=== PATIENT | female | born 1965 | race Caucasian/White ===

== ENCOUNTER 2018-07-27 01:22 | Emergency (ER) | payer SELFPAY ==
[~2018-07-27] VITALS: Ht 165.1 cm; Wt 65.8 kg
[~2018-07-27 01:22] MED LIST: AMOX500T PO
--- NOTE | 2018-07-27 01:47 | EKG ---
[facility] [address] [place] [address] Test Date: 2018-07-27 Test Time: 01:40:21 Pat Name: LUCIA GIANG Department: Room: Gender: F [employer] Support Associate: : 1965 Requested By: TALIB WALKER Order Number: [id number] Reading MD: Faraz Dempsey MD Measurements Intervals [place] Rate: 85 P: 40 RI: 144 QRS: 30 QRSD: 92 T: 54 QT: 374 QTc: 445 Interpretive Statements SINUS RHYTHM Electronically Signed On 07-31-2018 11:03:01 CTC OPERATOR by Faraz Dempsey MD
--- NOTE | 2018-07-27 01:47 | PHYS DOC ---
Past Medical History Past Medical History: No Pertinent History Past Surgical History: No Surgical History Alcohol Use: Rarely Drug Use: Marijuana, Methamphetamine Adult General HPI HPI Patient is a 53 year old FEMALE who presents with left upper quadrant abdominal pain as well as left-sided chest pain. This started sometime yesterday. No worse with exertion. No position of comfort. No urinary symptoms. Patient arrived by EMS, EMS reports that she had a fever for them. Patient reports that she is coughing, has nausea and vomiting, and diarrhea. No blood in the stool or emesis. No sick family members. Patient has not had the flu vaccine this year. Patient reports taking Tylenol 3 without any symptom relief, as well as drinking alcohol without any symptom relief. Patient reports smoking marijuana earlier today prior to symptom onset. Patient also reports using methamphetamine today.[] Review of Systems Review of Systems Constitutional: Reports fever.[] Eyes: Denies change in visual acuity, redness, or eye pain [] HENT: Denies nasal congestion or sore throat [] Respiratory: Reports both cough and shortness of breath[] Cardiovascular: No additional information not addressed in HPI [] GI: See history of present illness[] : Denies dysuria or hematuria [] Musculoskeletal: Denies back pain or joint pain [] Integument: Denies rash or skin lesions [] Neurologic: Denies headache, focal weakness or sensory changes [] Endocrine: Denies polyuria or polydipsia [] All other systems were reviewed and found to be within normal limits, except as documented in this note. Current Medications Current Medications Current Medications Medications (Trade) Dose Ordered Sig/Leticia Start Time Stop Time Status Last Admin Dose Admin Ketorolac Tromethamine (Toradol 30mg Vial) 30 mg 1X ONCE 07/27/18 02:00 07/27/18 02:01 DC 07/27/18 02:02 30 MG Prochlorperazine Edisylate (Compazine) 5 mg 1X ONCE 07/27/18 02:00 07/27/18 02:01 DC 07/27/18 02:02 5 MG Sodium Chloride 1,000 ml @ 1,000 mls/hr Q1H 07/27/18 02:00 07/27/18 03:00 DC 07/27/18 02:01 1,000 MLS/HR Allergies Allergies Allergies Coded Allergies Type Severity Reaction Last Updated Verified No Known Drug Allergies 08/27/16 No Physical Exam Physical Exam Constitutional: Well developed, well nourished, mild discomfort, non-toxic appearance. [] HENT: Normocephalic, atraumatic, bilateral external ears normal, oropharynx moist, no oral exudates, nose normal. [] Eyes: PERRLA, EOMI, conjunctiva normal, no discharge. [] Neck: Normal range of motion, no tenderness, supple, no stridor. [] Cardiovascular:Heart rate regular rhythm, no murmur [] Lungs & Thorax: Bilateral breath sounds clear to auscultation [] Abdomen: Bowel sounds normal, soft, left upper quadrant tenderness, no masses, no pulsatile masses. [] Skin: Warm, dry, no erythema, no rash. [] Back: No tenderness, no CVA tenderness. [] Extremities: No tenderness, no cyanosis, no clubbing, ROM intact, no edema. [] Neurologic: Alert and oriented X 3, normal motor function, normal sensory function, no focal deficits noted. [] Psychologic: Affect normal, judgement normal, mood normal. [] Current Patient Data Vital Signs Vital Signs Date Time Temp Pulse Resp B/P (MAP) Pulse Ox O2 Delivery O2 Flow Rate FiO2 07/27/18 04:00 80 126/64 (84) 93 Room Air 07/27/18 01:23 99.4 20 99.4 Lab Values Laboratory Tests Test 07/27/18 01:53 07/27/18 01:56 07/27/18 02:06 07/27/18 02:09 White Blood Count 10.3 x10^3/uL (4.0-11.0) Red Blood Count 3.79 x10^6/uL (3.50-5.40) Hemoglobin 11.9 g/dL (12.0-15.5) L Hematocrit 35.2 % (36.0-47.0) L Mean Corpuscular Volume 93 fL (79-100) Mean Corpuscular Hemoglobin 32 pg (25-35) Mean Corpuscular Hemoglobin Concent 34 g/dL (31-37) Red Cell Distribution Width 13.8 % (11.5-14.5) Platelet Count 248 x10^3/uL (140-400) Neutrophils (%) (Auto) 68 % (31-73) Lymphocytes (%) (Auto) 20 % (24-48) L Monocytes (%) (Auto) 11 % (0-9) H Eosinophils (%) (Auto) 1 % (0-3) Basophils (%) (Auto) 0 % (0-3) Neutrophils # (Auto) 6.9 x10^3uL (1.8-7.7) Lymphocytes # (Auto) 2.1 x10^3/uL (1.0-4.8) Monocytes # (Auto) 1.1 x10^3/uL (0.0-1.1) Eosinophils # (Auto) 0.1 x10^3/uL (0.0-0.7) Basophils # (Auto) 0.0 x10^3/uL (0.0-0.2) Prothrombin Time 12.9 SEC (11.7-14.0) Prothrombin Time INR 1.0 (0.8-1.1) D-Dimer (Negar) 0.56 ug/mlFEU (0.00-0.50) H Sodium Level 141 mmol/L (136-145) Potassium Level 3.9 mmol/L (3.5-5.1) Chloride Level 102 mmol/L (98-107) Carbon Dioxide Level 24 mmol/L (21-32) Anion Gap 15 (6-14) H Blood Urea Nitrogen 23 mg/dL (7-20) H Creatinine 2.0 mg/dL (0.6-1.0) H Estimated GFR (Cockcroft-Gault) 26.1 BUN/Creatinine Ratio 12 (6-20) Glucose Level 113 mg/dL (70-99) H Lactic Acid Level 1.1 mmol/L (0.4-2.0) Calcium Level 8.9 mg/dL (8.5-10.1) Total Bilirubin 0.2 mg/dL (0.2-1.0) Aspartate Amino Transferase (AST) 9 U/L (15-37) L Alanine Aminotransferase (ALT) 20 U/L (14-59) Alkaline Phosphatase 128 U/L (46-116) H Troponin I Quantitative < 0.017 ng/mL (0.000-0.055) Total Protein 7.7 g/dL (6.4-8.2) Albumin 3.6 g/dL (3.4-5.0) Albumin/Globulin Ratio 0.9 (1.0-1.7) L Lipase 250 U/L (73-393) Urine Collection Type Unknown Urine Color Yellow Urine Clarity Clear Urine pH 6.0 Urine Specific [place] 1.020 Urine Protein Negative mg/dL (NEG-TRACE) Urine Glucose (UA) Negative mg/dL (NEG) Urine Ketones (Stick) Negative mg/dL (NEG) Urine Blood Small (NEG) Urine Nitrite Negative (NEG) Urine Bilirubin Negative (NEG) Urine Urobilinogen Dipstick 0.2 mg/dL (0.2 mg/dL) Urine Leukocyte Esterase Negative (NEG) Urine RBC Occ /HPF (0-2) Urine WBC Occ /HPF (0-4) Urine Squamous Epithelial Cells Mod /LPF Urine Bacteria Few /HPF (0-FEW) Urine Mucus Slight /LPF Urine Opiates Screen Pos (NEG) Urine Methadone Screen Neg (NEG) Urine Barbiturates Neg (NEG) Urine Phencyclidine Screen Neg (NEG) Urine Amphetamine/Methamphetamine Pos (NEG) Urine Benzodiazepines Screen Pos (NEG) Urine Cocaine Screen Neg (NEG) Urine Cannabinoids Screen Pos (NEG) Urine Ethyl Alcohol Neg (NEG) Influenza Type A Antigen Negative (NEGATIVE) Influenza Type B Antigen Negative (NEGATIVE) POC Urine HCG, Qualitative Hcg negative (Negative) Laboratory Tests 07/27/18 01:53 Laboratory Tests 07/27/18 01:53 EKG EKG EKG shows normal sinus rhythm, no ST elevations, normal axis, QTC of 445 ms[] Radiology/Procedures Radiology/Procedures CT scan of the abdomen and pelvis, there is respiratory motion artifact lung bases with moderate atelectasis or scarring in the lung bases. No acute abdominal or pelvic abnormality. Mild sigmoid colon diverticulosis without diverticulitis. Chest x-ray showed what appeared to be increased markings left lower lobe that may be related to the atelectasis or scarring noted on the CT scan.[] Course & Med Decision Making Course & Med Decision Making Pertinent Labs and Imaging studies reviewed. (See chart for details) Medical decision making: There is no lactic acidosis. There is no perforation, or obstruction, nor renal stone, nor evidence of pyelonephritis. No STEMI, no pneumothorax, there is the possibility of a left lower lobe infiltrate on chest x-ray but that may be the atelectasis/scarring noted on the CT scan. Patient does not have a leukocytosis patient has a slightly elevated d-dimer however with age adjustment this is within appropriate limits. She also has chronic renal insufficiency however her creatinine at 2.0 today is better than it has been in the past. ED course: Patient arrived by EMS in moderate discomfort. She was transferred reported to the ER bed from the EMS cot. Patient tolerated exam without any complications. Patient was given antinausea medicine as well as IV nonsteroidal anti-inflammatory medication which did improve her pain and allowed her to rest comfortably. Patient was transported to and from CT scan without any complications. After return of laboratory and imaging findings the results were discussed with the patient who voiced understanding. All questions were answered. Patient was discharged in improved condition.[] Dragon Disclaimer Dragon Disclaimer This electronic medical record was generated, in whole or in part, using a voice recognition dictation system. Departure Departure Impression: Primary Impression: Abdominal pain Additional Impressions: Chest pain Drug abuse Chronic kidney disease Disposition: HOME, SELF-CARE Condition: GOOD Referrals: NO PCP (PCP) Patient Instructions: Abdominal Pain (Nonspecific), Chest Pain (Nonspecific), Chronic Renal Insufficiency, Drug Abuse and Addiction-SportsMed Additional Instructions: Drink plenty of fluids. Do not take any medicines or drugs that are not prescribed for you, they may kill you. Follow-up with your regular doctor in 2 days. Return to the ER if worsening pain, unable to tolerate liquids, or any other concerns. Scripts Meloxicam (MELOXICAM) 7.5 Mg Tablet 7.5 MG PO DAILY, #20 TAB Prov: TIMBRANDYNABI HURSTSORAYA GARZA 07/27/18 Metoclopramide Hcl (REGLAN) 10 Mg Tablet 10 MG PO QIDACHS, #30 TAB 0 Refills Prov: TALIB WALKER DO 07/27/18 Problem Qualifiers Primary Impression: Abdominal pain Abdominal location: generalized Qualified Codes: R10.84 - Generalized abdominal pain Additional Impressions: Chest pain Chest pain type: unspecified Qualified Codes: R07.9 - Chest pain, unspecified Chronic kidney disease Chronic kidney disease stage: unspecified stage Qualified Codes: N18.9 - Chronic kidney disease, unspecified TIMBRANDYNTALIB HURST Jul 27, 2018 01:47
[2018-07-27] MEDS ORDERED: KETOROLAC 30 MG/ML VIAL. IV ONE (02:00)
[2018-07-27] MEDS ORDERED: IV NORMAL SALINE 1000ML BAG 1,000 ML IV SCH (02:00)
[2018-07-27] MEDS ORDERED: PROCHLORPERAZINE 10 MG/2 ML VIAL. IV ONE (02:00)
[2018-07-27 02:07] LABS: BASO % 0 % (0-3); EOS # 0.1 x10^3/uL (0.0-0.7); EOS % 1 % (0-3); HEMATOCRIT 35.2 % (36.0-47.0); HEMOGLOBIN 11.9 g/dL (12.0-15.5); LYMPH # 2.1 x10^3/uL (1.0-4.8); LYMPH % 20 % (24-48); MEAN CORPUSCULAR HEMOGLOBIN 32 pg (25-35); MEAN CORPUSCULAR HGB CONC 34 g/dL (31-37); MEAN CORPUSCULAR VOLUME 93 fL (79-100); MONO # 1.1 x10^3/uL (0.0-1.1); MONO % 11 % (0-9); NEUT # 6.9 x10^3uL (1.8-7.7); NEUT % 68 % (31-73); PLATELET COUNT 248 x10^3/uL (140-400); RED BLOOD COUNT 3.79 x10^6/uL (3.50-5.40); RED CELL DISTRIBUTION WIDTH 13.8 % (11.5-14.5); WHITE BLOOD COUNT 10.3 x10^3/uL (4.0-11.0)
[2018-07-27 02:14] LABS: CALCIUM 8.9 mg/dL (8.5-10.1); GFR 26.1; POTASSIUM 3.9 mmol/L (3.5-5.1); PROTHROMBIN TIME PATIENT 12.9 SEC (11.7-14.0)
[2018-07-27 02:20] LABS: D-DIMER 0.56 ug/mlFEU (0.00-0.50)
[2018-07-27 02:21] LABS: ALBUMIN 3.6 g/dL (3.4-5.0); ALBUMIN/GLOBULIN RATIO 0.9 (1.0-1.7); TOTAL BILIRUBIN 0.2 mg/dL (0.2-1.0); TOTAL PROTEIN 7.7 g/dL (6.4-8.2)
[2018-07-27 02:35] LABS: INFLUENZA A PATIENT NEGATIVE (NEGATIVE); INFLUENZA B PATIENT NEGATIVE (NEGATIVE)
[2018-07-27 02:57] LABS: BILIRUBIN,URINE NEGATIVE (NEG); CLARITY,URINE CLEAR; COLOR,URINE YELLOW; NITRITE,URINE NEGATIVE (NEG); PROTEIN,URINE NEGATIVE (NEG-TRACE); UROBILINOGEN,URINE 0.2 mg/dL (0.2 mg/dL)
[2018-07-27 03:00] LABS: BACTERIA,URINE FEW /HPF (0-FEW); RBC,URINE OCC /HPF (0-2); SQUAMOUS EPITHELIAL CELL,UR MOD /LPF; WBC,URINE OCC /HPF (0-4)
[2018-07-27 03:03] LABS: BARBITURATES NEG (NEG); BENZODIAZEPINES POS (NEG); CANNABINOIDS POS (NEG); COCAINE NEG (NEG); METHADONE NEG (NEG); OPIATES POS (NEG); PHENCYCLIDINE NEG (NEG)
[2018-07-27 03:04] LABS: AMPHETAMINE/METHAMPHETAMINE POS (NEG)
--- NOTE | 2018-07-27 03:45 | RAD ---
PQRS Compliance Statement: One or more of the following individualized dose reduction techniques were utilized for this examination: 1. Automated exposure control 2. Adjustment of the mA and/or kV according to patient size 3. Use of iterative reconstruction technique CT ABDOMEN PELVIS WO CONTRAST Clinical Indication: Left upper quadrant pain Comparison: CT abdomen and pelvis with contrast, August 31, 2016. Technique: Helical CT imaging of the abdomen and pelvis is performed without IV or oral contrast. Findings: Evaluation of solid organs and bowel is limited without oral and IV contrast, decreasing sensitivity for detection of pathology. Respiratory motion artifact in the lung bases. Moderate atelectasis or scarring in the lung bases. Cardiac size normal. Gallbladder is contracted, limiting evaluation. Liver, spleen, pancreas, adrenal glands, and abdominal aorta caliber are normal. No hydronephrosis. There is mild bilateral perinephric stranding. Stomach unremarkable. No dilated small bowel. Mild sigmoid colon diverticulosis. Appendix not identified, no secondary signs of appendicitis. No abdominal adenopathy or free fluid. Urinary bladder is normal. Uterus unremarkable. No pelvic free fluid. Grade 1 anterolisthesis of L4 on L5. Degenerative spondylosis is most apparent at T12/L1 and L5/S1. IMPRESSION: 1. No acute abdominal or pelvic abnormality. 2. Moderate atelectasis or scarring in the lung bases. 3. Mild sigmoid colon diverticulosis without diverticulitis. Electronically signed by: Santana Marshall MD (07/27/2018 3:42 AM) [facility]
[2018-07-27] MEDS ORDERED: METO10TA81 PO (04:21)
[2018-07-27] MEDS ORDERED: MELO7.5T29 PO (04:21)
[2018-07-27 04:30] VITALS: BP 119/67
--- NOTE | 2018-07-27 04:44 | RAD ---
PORTABLE CHEST 1V Clinical Indication: luq pain Comparison: Two-view chest, August 27, 2016. Findings: The cardiomediastinal silhouette is normal. There is left greater than right basilar airspace disease. There is no pneumothorax. No pleural effusion is appreciated. No acute bone abnormality. IMPRESSION: Bibasilar airspace disease may be atelectasis, pneumonia, or aspiration. Electronically signed by: Santana Marshall MD (07/27/2018 4:41 AM) [facility]
== END 2018-07-27 04:42 | disposition home or self-care (01) ==
LOC: ER 01:22
DX: R10.12 Left upper quadrant pain (principal); R07.89 Other chest pain; N18.9 Chronic kidney disease, unspecified; K57.30 Diverticulosis of large intestine without perforation or abscess without bleeding; R05 Cough; R19.7 Diarrhea, unspecified; F12.20 Cannabis dependence, uncomplicated; F15.20 Other stimulant dependence, uncomplicated
CPT/HCPCS: 36415; 71045; 74176; 80053; 80307; 81001; 81025; 83605; 83690; 84484; 85025; 85379; 85610; 87804; 93005; 96361; 96374; 96375; 99285; J0780; J1885; J7030

== ENCOUNTER 2019-12-31 22:40 | Emergency (ER) | payer SELFPAY ==
[~2019-12-31] VITALS: Ht 167.6 cm; Wt 81.8 kg
[~2019-12-31 22:40] MED LIST changes: +MELO7.5T29 PO; +METO10TA81 PO
[2019-12-31] MEDS ORDERED: fentaNYL PF VIAL 100 MCG/2 ML VIAL IV PRN (23:00)
[2019-12-31 23:15] LABS: BASO # 0.1 x10^3/uL (0.0-0.2); BASO % 1 % (0-3); EOS # 0.1 x10^3/uL (0.0-0.7); EOS % 1 % (0-3); HEMATOCRIT 44.9 % (36.0-47.0); HEMOGLOBIN 15.2 g/dL (12.0-15.5); LYMPH # 2.6 x10^3/uL (1.0-4.8); LYMPH % 21 % (24-48); MEAN CORPUSCULAR HEMOGLOBIN 31 pg (25-35); MEAN CORPUSCULAR HGB CONC 34 g/dL (31-37); MEAN CORPUSCULAR VOLUME 91 fL (79-100); MONO # 1.2 x10^3/uL (0.0-1.1); MONO % 10 % (0-9); NEUT # 8.7 x10^3/uL (1.8-7.7); NEUT % 69 % (31-73); PLATELET COUNT 240 x10^3/uL (140-400); RED BLOOD COUNT 4.94 x10^6/uL (3.50-5.40); RED CELL DISTRIBUTION WIDTH 13.7 % (11.5-14.5); WHITE BLOOD COUNT 12.8 x10^3/uL (4.0-11.0)
--- NOTE | 2019-12-31 23:18 | PHYS DOC ---
Past Medical History Past Medical History: Anxiety, Depression, High Cholesterol, Hypertension, Renal Disease Past Surgical History: No Surgical History Smoking Status: Current Every Day Smoker Alcohol Use: Occasionally Drug Use: Marijuana, Methamphetamine General Adult EDM: Chief Complaint: DENTAL PROBLEM HPI: HPI: Patient is a 54 year old female who presents with complaint of facial swelling for the last 4 days. Patient states the swelling is progressively been getting worse. Patient states that she has bad teeth and is afraid that she has a dental abscess. Patient indicates upfront that she does not want to be hospitalized.[] Review of Systems: Review of Systems: Constitutional: Denies fever or chills. [] HENT: Positive dental pain and facial swelling. [] Respiratory: Denies cough or shortness of breath. [] Cardiovascular: Denies chest pain or edema. [] Integument: Denies rash. [] Neurologic: Denies headache, focal weakness or sensory changes. [] A full 10 point review of systems has been reviewed and is otherwise negative. Heart Score: Risk Factors: Risk Factors: DM, Current or recent (<one month) smoker, HTN, HLP, family history of CAD, obesity. Risk Scores: Score 0 - 3: 2.5% MACE over next 6 weeks - Discharge Home Score 4 - 6: 20.3% MACE over next 6 weeks - Admit for Clinical Observation Score 7 - 10: 72.7% MACE over next 6 weeks - Early Invasive Strategies Current Medications: Current Medications Medications (Trade) Dose Ordered Sig/Leticia Start Time Stop Time Status Last Admin Dose Admin Clindamycin Phosphate 50 ml @ 100 mls/hr 1X ONCE 12/31/19 23:30 12/31/19 23:59 Fentanyl Citrate (Fentanyl 2ml Vial) 25 mcg PRN Q15MIN PRN 12/31/19 23:00 01/01/20 22:59 Ondansetron HCl (Zofran) 4 mg 1X ONCE 12/31/19 23:30 12/31/19 23:31 Sodium Chloride 1,000 ml @ 1,000 mls/hr Q1H 12/31/19 23:30 01/01/20 00:29 Allergies: Allergies: Allergies Coded Allergies Type Severity Reaction Last Updated Verified No Known Drug Allergies 08/27/16 No Physical Exam: PE: Constitutional: Well developed, well nourished, no acute distress, non-toxic appearance. [] HENT: Normocephalic, atraumatic, bilateral external ears normal, oropharynx moist, no oral exudates, with mild swelling to the left maxillary region, extending up to the lower eyelid. [] Eyes: PERRLA, EOMI, conjunctiva normal, no discharge. [] Neck: Normal range of motion, no tenderness, supple, no stridor. [] Cardiovascular: Regular rate and rhythm[] Lungs & Thorax: Bilateral breath sounds clear to auscultation [] Abdomen: Bowel sounds normal, soft, no tenderness, no masses, no pulsatile masses. [] Skin: Warm, dry, no erythema, no rash. [] Extremities: No tenderness, no cyanosis, no clubbing, ROM intact. [] Neurologic: Alert and oriented X 3, no focal deficits noted. [] Current Patient Data: Vital Signs: Vital Signs Date Time Temp Pulse Resp B/P (MAP) Pulse Ox O2 Delivery O2 Flow Rate FiO2 12/31/19 22:53 99.2 91 18 163/101 (121) 97 Room Air 99.2 EKG: EKG: [] Radiology/Procedures: Radiology/Procedures: [] Impression: PROCEDURE: CT MAXILLOFACIAL WO CONTRAST EXAM: CT facial bones without contrast CLINICAL HISTORY: Facial swelling, abscess COMPARISON: None available. TECHNIQUE: Helical CT of the face/paranasal sinuses was acquired and axial, coronal and sagittal reformatted images were generated. ---PQRS compliance statement - One or more of the following individualized dose reduction techniques were utilized for this study: 1. Automated exposure control 2. Adjustment of the mA and/or kV according to patient size 3. Use of iterative reconstruction technique--- FINDINGS: No definite facial bone fractures seen. Opacification of the left maxillary sinus, possibly sinusitis. The left first premolar root extends beyond the margin of the maxilla. Periapical lucencies are seen about the right central and lateral incisors and first premolar, likely periapical abscesses. Large dental katya is seen within the first left premolar. In addition a large periapical lucency is seen about the left mandibular molar. With prominent dental cavity. The mastoids are unremarkable. The globes, extraocular muscles, optic nerves and retrobulbar fat are normal. Visualized upper aerodigestive tract is normal. Mandible and bilateral temporomandibular joints are otherwise normal. IMPRESSION: 1. No evidence for acute facial bone fracture or dislocation. 2. Multifocal dental cavities with periapical lucencies/possible abscesses are seen. 3. Left maxillary sinus opacification, possibly sinusitis. 4. No discrete abscess is identified within the limitations of this noncontrast examination. Electronically signed by: Omkar Moreland MD (01/01/2020 12:40 AM) [facility] Course & Med Decision Making: Course & Med Decision Making Pertinent Labs and Imaging studies reviewed. (See chart for details) [] Dragon Disclaimer: Dragon Disclaimer: This electronic medical record was generated, in whole or in part, using a voice recognition dictation system. Departure Departure Impression: Primary Impression: Periapical abscess without sinus Additional Impression: Pain due to dental caries Disposition: HOME, SELF-CARE Condition: STABLE Referrals: NO PCP (PCP) Patient Instructions: Dental Abscess, Dental Caries, Dental Pain Scripts Acetaminophen With Codeine (TYLENOL WITH CODEINE #3 TABLET) 1 Each Tablet 1 TAB PO PRN Q6HRS PRN for PAIN, #12 TAB Prov: JAMSHID MARIN Jr. DO 01/01/20 Clindamycin Hcl (CLINDAMYCIN HCL) 300 Mg Capsule 1 CAP PO QID, #40 CAP Prov: JAMSHID MARIN Jr. DO 01/01/20 JAMSHID MARIN Jr. DO Dec 31, 2019 23:18
[2019-12-31 23:26] LABS: CALCIUM 8.9 mg/dL (8.5-10.1); CREATININE 1.6 mg/dL (0.6-1.0); GFR 33.6; POTASSIUM 3.5 mmol/L (3.5-5.1)
[2019-12-31] MEDS ORDERED: IV NORMAL SALINE 1000ML BAG 1,000 ML IV SCH (23:30)
[2019-12-31] MEDS ORDERED: CLINDAMYCIN 900MG PREMIX 50 ML IV ONE (23:30)
[2019-12-31] MEDS ORDERED: ONDANSETRON PF 4 MG/2 ML VIAL. IVP ONE (23:30)
[2019-12-31 23:33] LABS: ALBUMIN 3.2 g/dL (3.4-5.0); ALBUMIN/GLOBULIN RATIO 0.6 (1.0-1.7); TOTAL BILIRUBIN 0.3 mg/dL (0.2-1.0); TOTAL PROTEIN 8.2 g/dL (6.4-8.2)
--- NOTE | 2020-01-01 00:43 | RAD ---
EXAM: CT facial bones without contrast CLINICAL HISTORY: Facial swelling, abscess COMPARISON: None available. TECHNIQUE: Helical CT of the face/paranasal sinuses was acquired and axial, coronal and sagittal reformatted images were generated. ---PQRS compliance statement - One or more of the following individualized dose reduction techniques were utilized for this study: 1. Automated exposure control 2. Adjustment of the mA and/or kV according to patient size 3. Use of iterative reconstruction technique--- FINDINGS: No definite facial bone fractures seen. Opacification of the left maxillary sinus, possibly sinusitis. The left first premolar root extends beyond the margin of the maxilla. Periapical lucencies are seen about the right central and lateral incisors and first premolar, likely periapical abscesses. Large dental katya is seen within the first left premolar. In addition a large periapical lucency is seen about the left mandibular molar. With prominent dental cavity. The mastoids are unremarkable. The globes, extraocular muscles, optic nerves and retrobulbar fat are normal. Visualized upper aerodigestive tract is normal. Mandible and bilateral temporomandibular joints are otherwise normal. IMPRESSION: 1. No evidence for acute facial bone fracture or dislocation. 2. Multifocal dental cavities with periapical lucencies/possible abscesses are seen. 3. Left maxillary sinus opacification, possibly sinusitis. 4. No discrete abscess is identified within the limitations of this noncontrast examination. Electronically signed by: Omkar Moreland MD (01/01/2020 12:40 AM) [facility]
[2020-01-01 00:50] VITALS: BP 183/93
[2020-01-01] MEDS ORDERED: CLIN300C8 PO (00:51)
[2020-01-01] MEDS ORDERED: ACET-704 PO (00:51)
== END 2020-01-01 00:58 | disposition home or self-care (01) ==
LOC: ER 22:40
DX: K04.7 Periapical abscess without sinus (principal); K02.9 Dental caries, unspecified; K08.89 Other specified disorders of teeth and supporting structures; I10 Essential (primary) hypertension; E78.00 Pure hypercholesterolemia, unspecified; F17.200 Nicotine dependence, unspecified, uncomplicated
CPT/HCPCS: 36415; 70486; 80053; 85025; 87040; 96365; 96375; 99285; J2405; J3010; J3490; J7030